=== PATIENT | male | born 1990 | race Caucasian/White ===

== ENCOUNTER 2016-05-29 18:56 | Emergency (ER) | payer SELFPAY ==
[~2016-05-29] VITALS: Ht 188 cm; Wt 97.0 kg
[~2016-05-29 18:56] MED LIST: AMOXICILLIN; AMOXICILLIN500 MG PO; AMOXICILLIN875 MG OR; ESTER-C500 MG OR; PRILOSEC OTC20 MG OR; ROCEPHIN 1 GM1 GM IM; ULTRAM50 MG PO; VITAMINS & PO
[2016-05-29 22:12] LABS: INFLUENZA A NONE DETECTED (NONE DETECT); INFLUENZA B NONE DETECTED (NONE DETECT)
[2016-05-29 22:42] LABS: HEMATOCRIT 40.3 % (39.0-50.0); HEMOGLOBIN 14.2 g/dl (14.0-18.0); IMMATURE GRANULOCYTES 0.5 % (0.0-1.0); MEAN CORPUSCULAR HGB 29.6 pG CALC (26.0-32.0); MEAN CORPUSCULAR HGB CONC 35.2 g/L CALC (32.0-36.0); NEUT# 10.85 thou/uL (1.82-7.42); RED BLOOD COUNT 4.8 mill/uL (4.70-6.10); RED CELL DISTRI WIDTH 12.5 % (11.5-15.5); URINE BILIRUBIN - DIPSTICK NEGATIVE (NEGATIVE); URINE BLOOD DIPSTICK NEGATIVE (NEGATIVE); URINE CLARITY SLIGHT CLOUDY; URINE COLOR YELLOW; URINE GLUCOSE - DIPSTICK NEGATIVE (NEGATIVE); URINE KETONE NEGATIVE (NEGATIVE); URINE LEUK ESTERASE NEGATIVE (NEGATIVE); URINE NITRITE - DIPSTICK NEGATIVE (Negative); URINE PROTEIN - DIPSTICK NEGATIVE (NEG-TRACE); URINE SPECIFIC GRAVITY <=1.005; URINE UROBILINOGEN - DIPSTICK 0.2 E.U./dL (0.2)
[2016-05-29 22:49] LABS: BARBITURATES NEGATIVE (NEGATIVE); COCAINE NEGATIVE (NEGATIVE); METHADONE NEGATIVE (NEGATIVE); OXCYCODONE NEGATIVE (NEGATIVE); TETRAHYDROCANNABIONOL NEGATIVE (NEGATIVE); TRICYLIC ANTIDEPRESSANTS NEGATIVE (NEGATIVE)
[2016-05-29 22:59] LABS: ALBUMIN 4.4 g/dL (3.2-5.0); ALKALINE PHOSPHATASE 54 u/l (38-126); ANION GAP 14 (6-22 (CALC)); BILIRUBIN, TOTAL 0.5 mg/dL (0.0-1.4); BUN 10 mg/dL (9-20); BUN/CREATININE RATIO 12 (12-20 (CALC)); CALCIUM 9.3 mg/dL (8.4-10.2); CARBON DIOXIDE 27 mmol/l (22-30); CHLORIDE 96 mmol/l (95-108); CREATININE 0.8 mg/dL (0.7-1.3); GFR > 60 ML/MIN (>=60 (CALC)); GFR FOR AFR.AMER. > 60 ML/MIN (>=60 (CALC)); GLUCOSE 98 mg/dL (75-110); SGOT/AST 26 u/l (17-59); SGPT/ALT 57 u/l (21-72); SODIUM 133 mmol/l (137-146)
[2016-05-29] MEDS ORDERED: AMOXICILLIN500 MG PO (23:16)
[2016-05-29 23:40] VITALS: BP 122/72
== END 2016-05-29 23:55 | disposition home or self-care (01) | DRG 153 ==
LOC: ED 18:56
PROVIDERS: Emergency Medicine
DX: J02.9 Acute pharyngitis, unspecified (principal); F17.210 Nicotine dependence, cigarettes, uncomplicated; R06.02 Shortness of breath; M79.1 Myalgia; R05 Cough

== ENCOUNTER 2016-06-01 10:42 | Emergency (ER) | payer SELFPAY ==
[~2016-06-01] VITALS: Ht 188 cm; Wt 95.0 kg
[2016-06-01 11:28] LABS: IMMATURE GRANULOCYTES 0.6 % (0.0-1.0); MEAN CELL VOLUME 82.9 fL CALC (80.0-100.0); MEAN CORPUSCULAR HGB 29.5 pG CALC (26.0-32.0); MEAN CORPUSCULAR HGB CONC 35.6 g/L CALC (32.0-36.0); NEUT# 9.65 thou/uL (1.82-7.42); RED BLOOD COUNT 5.43 mill/uL (4.70-6.10); RED CELL DISTRI WIDTH 12.2 % (11.5-15.5)
[2016-06-01 11:45] LABS: COCAINE NEGATIVE (NEGATIVE); TETRAHYDROCANNABIONOL NEGATIVE (NEGATIVE); URINE BILIRUBIN - DIPSTICK SMALL (NEGATIVE); URINE BLOOD DIPSTICK TRACE (NEGATIVE); URINE CLARITY SLIGHT CLOUDY; URINE COLOR YELLOW; URINE GLUCOSE - DIPSTICK NEGATIVE (NEGATIVE); URINE KETONE 40 mg/dL (NEGATIVE); URINE LEUK ESTERASE NEGATIVE (NEGATIVE); URINE NITRITE - DIPSTICK NEGATIVE (Negative); URINE PH 5.5 (4.5-8.0); URINE PROTEIN - DIPSTICK NEGATIVE (NEG-TRACE); URINE SPECIFIC GRAVITY >=1.030; URINE UROBILINOGEN - DIPSTICK 0.2 E.U./dL (0.2)
[2016-06-01 11:46] LABS: BARBITURATES NEGATIVE (NEGATIVE); METHADONE NEGATIVE (NEGATIVE); OXCYCODONE NEGATIVE (NEGATIVE); TRICYLIC ANTIDEPRESSANTS NEGATIVE (NEGATIVE)
[2016-06-01 11:53] LABS: ANION GAP 22 (6-22 (CALC)); BUN 12 mg/dL (9-20); BUN/CREATININE RATIO 13 (12-20 (CALC)); CALCIUM 9.5 mg/dL (8.4-10.2); CARBON DIOXIDE 21 mmol/l (22-30); CHLORIDE 100 mmol/l (95-108); CREATININE 0.9 mg/dL (0.7-1.3); GFR > 60 ML/MIN (>=60 (CALC)); GFR FOR AFR.AMER. > 60 ML/MIN (>=60 (CALC)); GLUCOSE 128 mg/dL (75-110); POTASSIUM 4.2 mmol/l (3.5-5.1); SODIUM 139 mmol/l (137-146)
[2016-06-01 11:54] LABS: ALKALINE PHOSPHATASE 64 u/l (38-126); BILIRUBIN, TOTAL 0.7 mg/dL (0.0-1.4); SGOT/AST 31 u/l (17-59); SGPT/ALT 52 u/l (21-72); TOTAL PROTEIN 8.5 g/dL (6.3-8.2)
[2016-06-01 12:24] VITALS: BP 125/75
== END 2016-06-01 12:26 | disposition home or self-care (01) | DRG 310 ==
LOC: ED 10:42
PROVIDERS: Emergency Medicine
DX: R00.2 Palpitations (principal); F41.9 Anxiety disorder, unspecified; J03.90 Acute tonsillitis, unspecified; F17.210 Nicotine dependence, cigarettes, uncomplicated

== ENCOUNTER 2016-06-06 21:14 | Emergency (ER) | payer SELFPAY ==
[~2016-06-06] VITALS: Ht 188 cm; Wt 89.0 kg
[2016-06-06] MEDS ORDERED: PREDNISONE1 MG PO (21:26)
[2016-06-06 22:35] LABS: HEMATOCRIT 41.1 % (39.0-50.0); IMMATURE GRANULOCYTES 0.2 % (0.0-1.0); MEAN CELL VOLUME 81.4 fL CALC (80.0-100.0); MEAN CORPUSCULAR HGB 29.7 pG CALC (26.0-32.0); MEAN CORPUSCULAR HGB CONC 36.5 g/L CALC (32.0-36.0); NEUT# 5.68 thou/uL (1.82-7.42); RED BLOOD COUNT 5.05 mill/uL (4.70-6.10); RED CELL DISTRI WIDTH 12.2 % (11.5-15.5)
[2016-06-06 22:44] LABS: ALBUMIN 4.4 g/dL (3.2-5.0); ALKALINE PHOSPHATASE 52 u/l (38-126); ANION GAP 17 (6-22 (CALC)); BILIRUBIN, TOTAL 0.8 mg/dL (0.0-1.4); BUN 13 mg/dL (9-20); BUN/CREATININE RATIO 13 (12-20 (CALC)); CALCIUM 9.5 mg/dL (8.4-10.2); CARBON DIOXIDE 23 mmol/l (22-30); CHLORIDE 101 mmol/l (95-108); GFR > 60 ML/MIN (>=60 (CALC)); GFR FOR AFR.AMER. > 60 ML/MIN (>=60 (CALC)); GLUCOSE 96 mg/dL (75-110); POTASSIUM 3.2 mmol/l (3.5-5.1); SGOT/AST 25 u/l (17-59); SGPT/ALT 32 u/l (21-72); SODIUM 138 mmol/l (137-146); TOTAL PROTEIN 7.4 g/dL (6.3-8.2)
[2016-06-06 23:33] LABS: MYOGLOBIN 15 ng/mL (0 - 121)
[2016-06-07] MEDS ORDERED: ATIVAN0.5 MG PO (00:07)
[2016-06-07 00:26] VITALS: BP 123/75
== END 2016-06-07 00:32 | disposition home or self-care (01) | DRG 880 ==
LOC: ED 21:14
PROVIDERS: Emergency Medicine
DX: F41.1 Generalized anxiety disorder (principal); F43.0 Acute stress reaction; T78.40XA Allergy, unspecified, initial encounter
CPT/HCPCS: J2060; Q9967